=== PATIENT | female | born 1990 | race Two or more races ===

== ENCOUNTER 2019-07-18 19:28 | Emergency (ER) | payer MEDICAID ==
[~2019-07-18] VITALS: Ht 175.3 cm; Wt 81.1 kg
[2019-07-18 19:33] VITALS: BP 124/78
--- NOTE | 2019-07-18 21:11 | NUR ---
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 AMA SIGNED. PT AWARE TO RETURN TO ED WITH ANY NEW OR WORSENING S/S.
== END 2019-07-18 21:13 | disposition left against medical advice (07) ==
LOC: ED 21:05
DX: R10.32 Left lower quadrant pain (principal); Z53.21 Procedure and treatment not carried out due to patient leaving prior to being seen by health care provider